=== PATIENT | male | born 1965 | race Caucasian/White ===

== ENCOUNTER 2017-06-22 13:15 | Observation (INO) ==
[2017-06-22 14:20] LABS: Basophils # 0.1 K/mcL (0.0-0.2); Basophils % 0.6 %; Eosinophils # 0.1 K/mcL (0.0-0.6); Eosinophils % 1.2 %; Hematocrit 47.5 % (37.5-50.1); Hemoglobin 16.4 g/dL (12.9-16.9); Immature Granulocytes % 0.2 % (0-4); Lymphocytes % 22.5 %; Mean Corpuscular HGB Conc 34.5 g/dL (31.6-35.5); Mean Corpuscular Hemoglobin 29.5 pg (28.0-33.3); Mean Corpuscular Volume 85.4 fL (83.0-100.0); Monocytes # 0.7 K/mcL (0.0-1.3); Monocytes % 7.5 %; Neutrophils # 6.2 K/mcL (1.6-8.9); Platelet Count 236 K/mcL (140-400); Red Blood Count 5.56 M/mcL (4.19-5.50); Red Cell Distribution Width 13.3 % (11.5-14.5)
[2017-06-22 14:25] LABS: Prothrombin Time 11.2 Seconds (9.4-12.1)
[2017-06-22 14:30] LABS: BUN/Creatinine Ratio 17 (6-26); Blood Urea Nitrogen 15 mg/dL (8-26); Calcium 9.5 mg/dL (8.6-10.8); Carbon Dioxide 28 mEq/L (19-29); Chloride 101 mEq/L (98-109); Glucose 91 mg/dL (70-99); Magnesium 1.9 mg/dL (1.6-2.6); Osmolality,Calculated 290 (280-300); Phosphorous 2.9 mg/dL (2.3-4.7); Potassium 3.3 mEq/L (3.5-4.5); Sodium 140 mEq/L (136-145); eGFR For African Americans > 60 (> 60); eGFR For Non-African Americans > 60 (> 60)
[2017-06-22] MEDS ORDERED: Aspirin 81 MG TAB.CHEW PO ONE (14:31)
[2017-06-22] MEDS ORDERED: Nitroglycerin 0.4 MG TAB.SUBL SL PRN (14:32)
--- NOTE | 2017-06-22 14:35 | Emergency Department Note ---
Disposition Clinical Impression: Unstable angina Hypertension Qualifiers: Hypertension type: unspecified Qualified Code(s): I10 - Essential (primary) hypertension Disposition: Admitted As Inpatient Condition: Fair Referrals: Dirk Campos Jr, MD [Primary Care Provider] - Forms: ED Satisfaction Letter Time of Disposition: 15:20 Chest Pain HPI - General Chief Complaint: ED Chest Pain Stated Complaint: CP Time Seen by Provider: 06/22/17 13:55 Source: patient Mode of arrival: ambulatory Limitations: no limitations Vital Signs Reviewed: Yes Nursing Notes Reviewed: Yes - History of Present Illness HPI Narrative: 52-year-old male with a history of hypertension presents for evaluation of 9 hours of retrosternal nonexertional chest pressure without radiation. Patient states it feels like somebody is sitting on his chest. Patient denies any radiation of symptoms. Denies a history of prior. Denies history of heart attacks in the past. Did have a remote stress test performed. Denies any dyspnea. Notes baseline diaphoresis. No nausea or vomiting. No abdominal pain. No fevers or cough. Patient took 1 baby aspirin prior to arrival. Severity scale (1-10): 6 - Related Data Home Medications Medication Instructions Recorded Confirmed Aspirin Enteric Coated [Aspirin EC] 81 mg PO DAILY 06/22/17 06/22/17 Metoprolol Succinate 100 mg PO DAILY 06/22/17 06/22/17 Multivitamin [Multi-Day Vitamins] 1 each PO DAILY 06/22/17 06/22/17 Triamterene/HCTZ 37.5/25mg 1 each PO DAILY 06/22/17 06/22/17 [Dyazide] Allergies Allergy/AdvReac Type Severity Reaction Status Date / Time Penicillins [PCN] Allergy Rash Verified 12/26/16 11:53 All systems ED: reviewed and negative except as stated. Constitutional: Reports: as per HPI. Denies: fever Eyes: Reports: as per HPI ENT ED: Reports: as per HPI Cardiovascular: Reports: as per HPI, chest pain Respiratory: Reports: as per HPI. Denies: cough, dyspnea Gastrointestinal: Reports: as per HPI. Denies: abdominal pain, nausea, vomiting Genitourinary: Reports: as per HPI Musculoskeletal: Reports: as per HPI. Denies: back pain Integumentary: Reports: as per HPI Neurological: Reports: as per HPI, headache Psychiatric: Reports: as per HPI Endocrine: Reports: as per HPI Chest Pain PMH - Past Medical History Medical history: Reports: hypertension Psychiatric history: Reports: no psych history - Social History Smoking Status: Former smoker Alcohol use: Reports: none Drug use: Reports: none Physical Exam - General Limitations: no limitations General appearance: alert, in no apparent distress - Head Head exam: atraumatic, normocephalic, normal inspection - Eye Eye exam: Present: normal appearance, PERRL, EOMI - ENT ENT exam: normal exam, mucous membranes moist - Neck Neck exam: Present: normal inspection - Chest Chest inspection: Present: normal inspection, symmetric chest wall rise - Respiratory Respiratory exam: Present: normal lung sounds bilaterally. Absent: respiratory distress - Cardiovascular Cardiovascular exam: Present: regular rate, normal rhythm. Absent: systolic murmur - Abdominal Exam Abdominal exam: Present: soft, Non-Tender - Extremities Exam Extremities exam: Present: normal inspection. Absent: pedal edema - Expanded Lower Extremity Exam Neurovascular/Tendon exam: Present: normal capillary refill - Back Exam Back exam: Present: normal inspection, full ROM. Absent: tenderness - Neurological Exam Neurological exam: Present: alert, oriented X3 - Skin Skin exam: Present: warm, dry, intact, normal color Course Course Narrative: Patient seen and examined. Patient's in no acute distress. Patients receiving cardiopulmonary evaluation including troponin, EKG, chest x-ray. Patient also receiving full dose aspirin and nitroglycerin. - Reevaluation(s) Reevaluation #1: Patient seen and examined. Reports pain has improved following the nitroglycen. Time: 15:20 Vital Signs O2 Sat by Pulse Oximetry 98 06/22/17 14:26 Temperature 98.5 F 06/22/17 14:30 Pulse Rate 76 06/22/17 15:29 Respiratory Rate 18 06/22/17 15:29 Blood Pressure 158/98 06/22/17 15:29 O2 Sat by Pulse Oximetry 98 06/22/17 15:29 Oxygen Delivery Oxygen Delivery Room Air Chest Pain - [facility] Narrative Medical decision making narrative: 52-year-old male percent survivorship chest pain. Patient does have risk factors including hypertension, tobacco use is well as obesity. Patient's heart scores 4. Patient had relief with nitroglycerin. Patient's symptoms are consistent with unstable angina. Patient would likely need further evaluation with troponins as well as possible stress test. Patient is agreeable with plan of care. This does not appear to be a PE as the patient is not have a pleuritic component. Patient's symptoms are more consistent with ACS. - Lab Data Lab results reviewed: Yes I reviewed the patient's lab results. Result diagrams: 06/22/17 14:06 06/22/17 14:06 Lab Results 06/22/17 06/22/17 06/22/17 Range/Units 14:06 14:06 14:06 WBC 9.1 (4.3-11.1) K/mcL RBC 5.56 H (4.19-5.50) M/mcL Hgb 16.4 (12.9-16.9) g/dL Hct 47.5 (37.5-50.1) % MCV 85.4 (83.0-100.0) fL MCH 29.5 (28.0-33.3) pg MCHC 34.5 (31.6-35.5) g/dL RDW 13.3 (11.5-14.5) % Plt Count 236 (140-400) K/mcL MPV 10.0 (9.4-12.4) fL Immature Gran % 0.2 (0-4) % Seg Neutrophils % 68.0 % Lymphocytes % 22.5 % Monocytes % 7.5 % Eosinophils % 1.2 % Basophils % 0.6 % Neutrophils # 6.2 (1.6-8.9) K/mcL Lymphocytes # 2.0 (0.6-4.6) K/mcL Monocytes # 0.7 (0.0-1.3) K/mcL Eosinophils # 0.1 (0.0-0.6) K/mcL Basophils # 0.1 (0.0-0.2) K/mcL PT 11.2 (9.4-12.1) Seconds INR 1.0 Sodium (136-145) mEq/L Potassium (3.5-4.5) mEq/L Chloride (98-109) mEq/L Carbon Dioxide (19-29) mEq/L BUN (8-26) mg/dL Creatinine (0.72-1.25) mg/dL Est GFR ( Amer) (> 60) Est GFR (Non-Af Amer) (> 60) BUN/Creatinine Ratio (6-26) Glucose (70-99) mg/dL Calculated Osmolality (280-300) Calcium (8.6-10.8) mg/dL Phosphorus (2.3-4.7) mg/dL Magnesium (1.6-2.6) mg/dL Troponin I (0-0.03) ng/mL B-Natriuretic Peptide 54 (0-100) pg/mL 06/22/17 06/22/17 Range/Units 14:06 14:06 WBC (4.3-11.1) K/mcL RBC (4.19-5.50) M/mcL Hgb (12.9-16.9) g/dL Hct (37.5-50.1) % MCV (83.0-100.0) fL MCH (28.0-33.3) pg MCHC (31.6-35.5) g/dL RDW (11.5-14.5) % Plt Count (140-400) K/mcL MPV (9.4-12.4) fL Immature Gran % (0-4) % Seg Neutrophils % % Lymphocytes % % Monocytes % % Eosinophils % % Basophils % % Neutrophils # (1.6-8.9) K/mcL Lymphocytes # (0.6-4.6) K/mcL Monocytes # (0.0-1.3) K/mcL Eosinophils # (0.0-0.6) K/mcL Basophils # (0.0-0.2) K/mcL PT (9.4-12.1) Seconds INR Sodium 140 (136-145) mEq/L Potassium 3.3 L (3.5-4.5) mEq/L Chloride 101 (98-109) mEq/L Carbon Dioxide 28 (19-29) mEq/L BUN 15 (8-26) mg/dL Creatinine 0.87 (0.72-1.25) mg/dL Est GFR ( Amer) > 60 (> 60) Est GFR (Non-Af Amer) > 60 (> 60) BUN/Creatinine Ratio 17 (6-26) Glucose 91 (70-99) mg/dL Calculated Osmolality 290 (280-300) Calcium 9.5 (8.6-10.8) mg/dL Phosphorus 2.9 (2.3-4.7) mg/dL Magnesium 1.9 (1.6-2.6) mg/dL Troponin I 0.00 (0-0.03) ng/mL B-Natriuretic Peptide (0-100) pg/mL - Radiology Data Radiology results reviewed: Yes I reviewed the patient's radiology results. - EKG Data EKG attestation: Yes I reviewed and interpreted this EKG. EKG shows normal: sinus rhythm Rate: normal Rhythm: NSR [place]/QRS: left axis deviation Voltage: c/w LVH P waves: LAE, other (P-wave inversions in V1,V2) ST segment depression in: aVF Interpretation: no acute changes, nonspecific ST-T wave changes Heart Score - Score History: Highly Suspicious EKG: Normal Age: 45-65 Risk Factors: 1-2 risk factors Troponin: Less than normal limit HEART Score Total: 4 S.B.ANilda - S.Adeline Situation: Demographics Background: Presenting Complaint Assessment: Vital Signs, Course and respsone to treatment, Patient/Family Expectation Recommendation: Barrier(s) to disposition, Recommendation based on pending studies, treatments, or consults S.BJeffANilda Report Given to: Dr. Barbie ZamarripaBJeffANilda Repor Time: 15:20 Attestation Statement - Attestation Attestation: I examined this patient and my medical decision-making was reviewed with the Resident Physician. I agree with the documented findings, disposition and treatment plan as described except to the extent set forth below. Patient to the ED with a chief complaint of chest pain. Substernal chest pressure. Still present on arrival here. No cardiac history. States had similar symptoms one time when he was "out of rhythm." No nausea vomiting. No diaphoresis. Pain is nonexertional. Exam shows him in bed in no distress. Heart regular lungs clear. Plan. Cardiac workup.
[2017-06-22] MEDS ORDERED: Naloxone 0.4 MG/ML INJ IVP PRN ×2 (19:18→22:02)
--- NOTE | 2017-06-22 19:33 | Internal Med History&Physical ---
Date of Encounter: 06/22/17 Time of Encounter: 19:27 Assessment and Plan (1) Chest pain Current visit: Yes Status: Acute Presents for chest pain, dyspnea, HTN and new BLE swelling r/o ACS. Workup thus far reveals unremarkable CBC and BMP, trop 0.00, stable CXR. Being admitted to r/o ACS d/t risk factors of HTN, Obesity, and new BLE swelling. Continuous telemetry Trend trops Lipid panel in AM as the patient does not think they have ever been checked exercise stress in am Echocardiogram Continue ASA at home dose 81mg Continue dyazide 37.5/25 Qualifiers: Ischemic chest pain type: unstable angina pectoris Qualified Code(s): I20.0 - Unstable angina (2) Hypertension Current visit: Yes Status: Acute Hypertension accompanied by CP and dyspena upon arrival to ED. BP has been better controlled since admission to hospital. Continue dyazide 37.5/25 Continue BB at home dose Qualifiers: Hypertension type: unspecified Qualified Code(s): I10 - Essential (primary ) hypertension (3) Diabetes Current visit: Yes Status: Suspected New polyuria, polyphagia, and polydipsia. Concern for DMII hgb a1c in am. Qualifiers: Diabetes mellitus type: type 2 Diabetes mellitus complication status: without complication Diabetes mellitus long term care administrator insulin use: without long term care administrator use Qualified Code(s): E11.9 - Type 2 diabetes mellitus without complications (4) Hypokalemia Current visit: Yes Status: Acute potassium of 3.3 replace with 40meq PO potassium. CMP in am. (5) DVT prophylaxis Current visit: Yes Status: Acute At risk for DVT d/t prolonged immobility and hospital stay. Start lovenox 40mg sc Internal Medicine - H&P: HPI Chief complaint: CHEST PAIN Admitted From: Home Plans for Post Hospital Care: Home History of present illness: Mr. Baca is a 52 year old male with a past medical history of hypertension, and sleep apnea who presents to [facility] today with 9 hours of retrosternal chest pain rated 6/10 at its worst, without radiation and dyspnea. No longer feeling CP but complains of chest pressure "I feel like a weight on my chest". Additionally admits to BLE swelling, polyuria, polydipsia , and polyphagia. Workup in the ED included CBC, metabolic panel and troponin which are all unremarkable at this time. Chest x-ray reveals no acute pulmonary process. Being admitted to [facility] for further monitoring and evaluation Past Med Surg Social Fam HX - Past Medical History Medical history: hypertension Psychiatric history: no psych history - Social History Smoking Status: Former smoker Smokeless Tobacco Status: No Alcohol use: occasionally Drug use: none - Family History Father Living Status: Cause of : cancer Hx Family Cancer: Yes Internal Medicine - H&P: Meds Aspirin Enteric Coated [Aspirin EC] 81 mg PO DAILY 06/22/17 [History] Metoprolol Succinate 100 mg PO DAILY 06/22/17 [History] Multivitamin [Multi-Day Vitamins] 1 each PO DAILY 06/22/17 [History] Triamterene/HCTZ 37.5/25mg [Dyazide] 1 each PO DAILY 06/22/17 [History] 3 Allergy/AdvReac Type Severity Reaction Status Date / Time Penicillins [PCN] Allergy Rash Verified 12/26/16 11:53 All Systems PM: A 10-system review of systems was performed and is negative for pertinent findings except as documented above in the HPI. - Constitutional Constitutional: no chills, no fever(s), no night sweats - EENT Eyes: no change in vision, no discharge, no pain, no photophobia Ears: no ear discharge, no ear pain, no tinnitus Nose, mouth and throat: no dysphagia, no nasal discharge, no neck pain, no sore throat - Cardiovascular Cardiovascular ROS IM: as per HPI, chest pain, dyspnea, palpitations, no diaphoresis, no irregular heart rhythm, no lightheadedness, no syncope - Respiratory Respiratory: no cough, no dyspnea on exertion, no wheezing, no excessive phlegm production - Gastrointestinal Gastrointestinal: no abdominal pain, no diarrhea, no hematemesis, no hematochezia, no melena, no nausea, no vomiting - Musculoskeletal Musculoskeletal ROS IM: no numbness, no tingling - Integumentary Integumentary IM: no rash, no unusual bruising - Neurological Neurological ROS: no confusion, no convulsions, no focal weakness, no numbness, no tingling, no tremor(s) - Endocrine Endocrine IM: excessive sweating, polydipsia, polyphagia, polyuria - Hematologic/Lymphatic Hematologic/Lymphatic: no easy bruising - Constitutional Vitals: Temp Pulse Resp BP Pulse Ox 99.0 F 76 17 134/82 96 06/22/17 19:25 06/22/17 19:25 06/22/17 19:25 06/22/17 19:25 06/22/17 19:25 General appearance: Present: cooperative, A&O X 3, no acute distress, answers questions appropriately - Head Head exam: Present: atraumatic, normocephalic - Eye Eye exam: Present: EOMI, PERRL, conjuntiva pink, sclera anicteric Pupils: Present: PERRL - Respiratory Respiratory exam: Present: CTAB. Absent: accessory muscle use, rales, rhonchi, wheezes - Cardiovascular Cardiovascular exam: Present: RRR, +S1, +S2. Absent: diastolic murmur, gallop, rubs, systolic murmur - GI/Abdominal GI/Abdominal exam: Present: firm, normal bowel sounds, soft, no peritoneal signs. Absent: distended, guarding, tenderness - Extremities Exam Extremities exam: Present: normal capillary refill, warm, radial pulses palpable and symmetrical. Absent: calf tenderness, cyanotic, pedal edema Additional comments: Lateral lower extremity is mildly swollen without pitting edema - Neurological Exam Neurological exam: Present: CN II-XII intact, oriented X3, no focal deficits. Absent: pronater drift, facial droop, speech deficit - Skin Skin exam: Present: dry, intact Internal Med - H&P Results - Labs CBC & Chem 7: 06/22/17 14:06 06/22/17 14:06 - Diagnostic Studies Chest x-ray Additional comments: No acute pulmonary process
[2017-06-22] MEDS ORDERED: *HR* Heparin 5,000 UNIT/ML VIAL IVP ONE (22:27)
[2017-06-22] MEDS ORDERED: *HR* Heparin 5,000 UNIT/ML VIAL IVP PRN ×2 (22:27)
--- NOTE | 2017-06-22 22:29 | Event Note ---
Date of Encounter: 06/22/17 Time of Encounter: 22:28 Patient seen and examined with nurse practitioner. Unstable angina. EKG shows .[address] depression in precordial leads. initial troponin normal. Will start the patient on full dose anticoagulation with heparin. Cardiology consultation.
[2017-06-22] MEDS ORDERED: Heparin 25,000 UNIT/500 ML D5W 25,000 UNIT/500 ML MLS IVC SCH (22:30)
[2017-06-22 22:52] LABS: Hematocrit 43.6 % (37.5-50.1); Hemoglobin 14.9 g/dL (12.9-16.9); Immature Platelets 3.6 % (1.1-6.1); Mean Corpuscular HGB Conc 34.2 g/dL (31.6-35.5); Mean Corpuscular Hemoglobin 29.3 pg (28.0-33.3); Mean Corpuscular Volume 85.7 fL (83.0-100.0); Mean Platelet Volume 10.1 fL (9.4-12.4); Red Blood Count 5.09 M/mcL (4.19-5.50); Red Cell Distribution Width 13.3 % (11.5-14.5)
[2017-06-22 22:56] LABS: INR 1.1; Prothrombin Time 12.4 Seconds (9.4-12.1)
[2017-06-23 04:40] LABS: Basophils # 0.1 K/mcL (0.0-0.2); Basophils % 0.6 %; Eosinophils # 0.1 K/mcL (0.0-0.6); Eosinophils % 1.5 %; Hematocrit 43.8 % (37.5-50.1); Hemoglobin 15.4 g/dL (12.9-16.9); Immature Granulocytes % 0.2 % (0-4); Lymphocytes # 2.5 K/mcL (0.6-4.6); Lymphocytes % 31.5 %; Mean Corpuscular HGB Conc 35.2 g/dL (31.6-35.5); Mean Corpuscular Hemoglobin 30.3 pg (28.0-33.3); Mean Corpuscular Volume 86.2 fL (83.0-100.0); Mean Platelet Volume 10.1 fL (9.4-12.4); Monocytes # 0.6 K/mcL (0.0-1.3); Monocytes % 7.5 %; Neutrophils # 4.7 K/mcL (1.6-8.9); Platelet Count 199 K/mcL (140-400); Red Blood Count 5.08 M/mcL (4.19-5.50); Red Cell Distribution Width 13.5 % (11.5-14.5); Segmented Neutrophils % 58.7 %
[2017-06-23 04:46] LABS: Hemoglobin A1C 5.1 %
[2017-06-23 04:54] LABS: Alanine Aminotransferase 59 Units/L (0-55); Albumin 3.3 g/dL (3.5-5.0); Albumin/Globulin Ratio 0.9 (1.1-2.2); Alkaline Phosphatase 61 Units/L (38-126); Aspartate Amino Transferase 35 Units/L (5-34); BUN/Creatinine Ratio 17 (6-26); Bilirubin,Total 0.8 mg/dL (0.2-1.2); Blood Urea Nitrogen 14 mg/dL (8-26); Calcium 8.6 mg/dL (8.6-10.8); Carbon Dioxide 28 mEq/L (19-29); Chloride 105 mEq/L (98-109); Cholesterol 141 mg/dL (< 200); Globulin 3.5 g/dL (2.4-3.5); Glucose 95 mg/dL (70-99); HDL Cholesterol 28 mg/dL (40-59); LDL Cholesterol,Calculated 85 mg/dL (0-99); Osmolality,Calculated 294 (280-300); Potassium 3.2 mEq/L (3.5-4.5); Sodium 142 mEq/L (136-145); Total Protein 6.8 g/dL (6.0-8.3); Triglycerides 141 mg/dL (< 150); eGFR For African Americans > 60 (> 60); eGFR For Non-African Americans > 60 (> 60)
[2017-06-23] MEDS ORDERED: *HR* Enoxaparin 40 MG/0.4 ML SYRINGE SQ SCH (06:00)
[2017-06-23] MEDS ORDERED: Regadenoson 0.4 MG/5 ML SYRINGE IVP ONE (08:36)
[2017-06-23] MEDS: Aspirin Enteric Coated 81 MG Tablet PO SCH (10:38)
[2017-06-23] MEDS: Multivit/Ca/Min/Fe/FA 1 TAB TABLET PO SCH (10:38)
[2017-06-23] MEDS: Metoprolol XL (24 HR) Succ 50 MG TAB.ER.24H PO SCH (10:38)
--- NOTE | 2017-06-23 14:17 | Electrocardiograph Report ---
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
--- NOTE | 2017-06-23 18:47 | Discharge Summary ---
Date of Encounter: 06/23/17 Time of Encounter: 08:40 - Discharge Medications Home Medications: Aspirin Enteric Coated [Aspirin EC] 81 mg PO DAILY 06/22/17 [History] Metoprolol Succinate 100 mg PO DAILY 06/22/17 [History] Multivitamin [Multi-Day Vitamins] 1 each PO DAILY 06/22/17 [History] Triamterene/HCTZ 37.5/25mg [Dyazide] 1 each PO DAILY 06/22/17 [History] Allergies/Adverse Reactions: 3 Allergy/AdvReac Type Severity Reaction Status Date / Time Penicillins [PCN] Allergy Rash Verified 12/26/16 11:53 Procedures/tests Complete & Pending: Procedures Performed prior 72 hours Category Date Time Status NM colten perf SPECT multi [NM] Routine Exams 06/23/17 07:53 Taken EV echocardiogram Routine Y 06/23/17 19:24 Completed SP pharm nuclear stress Routine Y 06/23/17 07:53 Completed Date of admission: 06/22/17 15:37 Primary care physician: Dirk Campos Jr, MD - Patient Status Condition: Fair - Discharge Instructions Follow Up With: Dirk Campos Jr, MD [Primary Care Provider] - Hospital course: Mr. Baca is a 52 year old male - Time Spent with Patient Total time spent providing and/or coordinating discharge services: - Constitutional Vitals: Temp Pulse Resp BP Pulse Ox 99.4 F 75 18 136/82 96 06/23/17 16:05 06/23/17 16:05 06/23/17 16:05 06/23/17 16:05 06/23/17 16:05 General appearance: Present: cooperative, A&O X 3, no acute distress, answers questions appropriately
--- NOTE | 2017-06-23 18:49 | Internal Med Progress Note ---
Date of Encounter: 06/23/17 Time of Encounter: 08:40 - Assessment and plan (1) Chest pain Current Visit: Yes Status: Acute Assessment and plan: Patient reported with midsternal chest pain rated 6/10 at its worst without radiation. This morning he rated it 2/10 and it was reproducible with deep inspiration and palpation. He reported in the emergency department the pain was relieved with nitroglycerin and aspirin. Patient is having to do a stress test to be completed tomorrow. Troponin was negative 3, lipid panel is within normal limits, A1c was 5.1. Echo showed Normal LV systolic function, LVEF 60-65%. Mild concentric left ventricular hypertrophy. Mild left ventricular diastolic dysfunction. Normal right ventricular size and function. It is probably bicuspid with fusion of the left and right coronary cusps. Mild aortic stenosis. Mildly dilated ascending aorta measuring 4.2 cm in diameter. Continue telemetry Stress test results tomorrow Consider cardiology consult pending results of stress Continue aspirin and beta joyce Nitroglycerin as needed for chest pain. Nothing by mouth after midnight Qualifiers: Ischemic chest pain type: unstable angina pectoris Qualified Code(s): I20.0 - Unstable angina (2) Hypertension Current Visit: Yes Status: Acute Assessment and plan: Well-controlled. Continue home medications. Qualifiers: Hypertension type: unspecified Qualified Code(s): I10 - Essential (primary ) hypertension (3) Hypokalemia Current Visit: Yes Status: Acute Assessment and plan: 3.2 today, additional supplementation given. Continue to monitor. (4) DVT prophylaxis Current Visit: Yes Status: Acute Assessment and plan: Lovenox subcutaneous, patient ambulatory in room. - Time Spent With Patient less than 15 minutes - Subjective Interval history: The patient was seen and assessed at 8:40 AM. Reports moderate midsternal pressure, 6/10, describes it as a heaviness states that it was relieved by nitroglycerin and aspirin in the emergency department. States it is still there and rates it as 2/10. He denies radiation diaphoresis, nausea, vomiting, or shortness of breath. The pain is worse with deep inspiration and palpation. He is a 2 day stress test, will complete tomorrow. - Constitutional Vitals: Temp Pulse Resp BP Pulse Ox 99.4 F 75 18 136/82 96 06/23/17 16:05 06/23/17 16:05 06/23/17 16:05 06/23/17 16:05 06/23/17 16:05 General appearance: Present: cooperative, A&O X 3, no acute distress, obese, answers questions appropriately - Head Head exam: Present: atraumatic, normal inspection, normocephalic - Eye Eye exam: Present: conjuntiva pink, sclera anicteric - Neck Neck exam general surgery: Present: normal inspection, supple, trachea midline. Absent: lymphadenopathy, tenderness - Expanded Neck Exam Neck exam: Absent: carotid bruit - Respiratory Respiratory exam: Present: CTAB. Absent: accessory muscle use, rales, rhonchi, wheezes - Cardiovascular Cardiovascular exam: Present: RRR, +S1, +S2. Absent: diastolic murmur, gallop, rubs, systolic murmur - GI/Abdominal GI/Abdominal exam: Present: normal bowel sounds, soft, tenderness, no peritoneal signs. Absent: distended, hepatomegaly - Extremities Exam Extremities exam: Present: normal inspection, warm, radial pulses palpable and symmetrical. Absent: calf tenderness, cyanotic, joint swelling, pedal edema, tenderness - Neurological Exam Neurological exam: Present: oriented X3. Absent: facial droop, speech deficit - Skin Skin exam: Present: dry, intact, normal color, warm. Absent: rash Internal Medicine: Result - Labs CBC & Chem 7: 06/23/17 04:28 06/23/17 04:28 Labs: Short CBC 06/22/17 06/23/17 Range/Units 22:43 04:28 WBC 8.7 8.0 (4.3-11.1) K/mcL Hgb 14.9 D 15.4 (12.9-16.9) g/dL Hct 43.6 43.8 (37.5-50.1) % Plt Count 223 199 (140-400) K/mcL Neutrophils # 4.7 (1.6-8.9) K/mcL BMP 06/23/17 04:28 Sodium 142 Potassium 3.2 L Chloride 105 Carbon Dioxide 28 BUN 14 Creatinine 0.81 Glucose 95 Calcium 8.6 Cardiac Enzymes 06/22/17 06/23/17 Range/Units 20:17 01:35 Troponin I 0.00 0.00 (0-0.03) ng/mL Liver Function 06/23/17 Range/Units 04:28 Total Bilirubin 0.8 (0.2-1.2) mg/dL AST 35 H (5-34) Units/L ALT 59 H (0-55) Units/L Alkaline Phosphatase 61 (38-126) Units/L Albumin 3.3 L (3.5-5.0) g/dL - ABG Interpretation ABG results: PT/INR, D-dimer PT 12.4 Seconds (9.4-12.1) H 06/22/17 22:43 Consult Discharge Plan - Plan Referrals: Dirk Campos Jr, MD [Primary Care Provider] -
[2017-06-24 05:28] LABS: Basophils % 0.5 %; Eosinophils # 0.1 K/mcL (0.0-0.6); Eosinophils % 1.6 %; Hematocrit 45.7 % (37.5-50.1); Hemoglobin 15.8 g/dL (12.9-16.9); Immature Granulocytes % 0.2 % (0-4); Lymphocytes # 1.9 K/mcL (0.6-4.6); Lymphocytes % 22.1 %; Mean Corpuscular HGB Conc 34.6 g/dL (31.6-35.5); Mean Corpuscular Hemoglobin 29.9 pg (28.0-33.3); Mean Corpuscular Volume 86.4 fL (83.0-100.0); Monocytes # 0.7 K/mcL (0.0-1.3); Monocytes % 8.4 %; Neutrophils # 5.8 K/mcL (1.6-8.9); Platelet Count 217 K/mcL (140-400); Red Blood Count 5.29 M/mcL (4.19-5.50); Red Cell Distribution Width 13.6 % (11.5-14.5); Segmented Neutrophils % 67.2 %
[2017-06-24] MEDS: Aspirin Enteric Coated 81 MG Tablet PO SCH (08:19)
[2017-06-24] MEDS: Multivit/Ca/Min/Fe/FA 1 TAB TABLET PO SCH (08:19)
[2017-06-24] MEDS: Metoprolol XL (24 HR) Succ 50 MG TAB.ER.24H PO SCH (08:24)
--- NOTE | 2017-06-24 08:45 | Nuclear Medicine Stress Report ---
Regadenoson Nuclear 2 day Name: Randal Baca Date of Study: 06/23/2017 Date: 1965 Ht: 69.0 in Medical Record#: [id number] Age: 52 Wt: 280.0 lb Gender: Male Order #: [id number] [facility] Supervising Provider: Art Staples CNP Reading Physician: Porfirio Umaña DO, FACC, FASNC Ordering Physician: Nanette Chance CNP Primary Care Physician: Dirk Campos MD Stress Technologist: Barber Ashby CRT Pharmacy Stock Clerk: Rubens Mcmanus Indications: Chest Pain Impression: Pharmacologic stress ECG is non diagnostic for ischemia due to baseline ST and T changes. Gated EF = 68%. Perfusion imaging was negative for ischemia or infarct. History: Hypertension Stress Test Summary: Stress Test Type: Pharmacologic Regadenoson 0.4mg/5ml given IV Baseline Information: Initial Heart Rate: 84 Blood Pressure: 160/100 Stress Information: Test Terminated Due to (primary): As per protocol Maximum Blood Pressure: 162/90 Maximum Heart Rate: 117 Percent Maximum Heart Rate Achieved: 70 Double Product: [id number] METS Reached: 1 Symptoms: tightness Nuclear Summary: SPECT myocardial perfusion imaging using Tc99m Sestamibi given intravenously was performed at rest and following cardiac stress testing. The resting images were obtained following initial dose of 33.1 mCi. Following stress an additional dose of 33.6 mCi was given at peak exercise or 30 seconds post regadenoson infusion. Medication Given: Time Medication Dose Units Route Findings: Stress Note * Resting ECG demonstrated normal sinus rhythm, ST-T changes. * No baseline arrhythmias were noted. * Pharmacologic stress ECG is non diagnostic for ischemia due to baseline ST and T changes. * No arrhythmias were noted during stress. * Patient had no chest pain during stress. * Normal hemodynamic responses to pharmacologic stress. Study Quality * Study quality is average. Gated EF % * Gated EF = 68%. Left Ventricle * The left ventricle is dilated. LVEDV = 148 mL. NORMALS * Normal wall motion. * Normal Segmental Perfusion in rest. * Normal segmental perfusion in stress. TID * No evidence of transient ischemic dilatation. TID ratio = 0.92. Lung Uptake * There is no evidence of increase lung uptake. Updated by Porfirio Umaña DO, FACC, FASE, FASCRISTINO on 06/24/2017 8:38:47 AM electronically signed on 06/24/2017 8:39:35 AM with status of Final
[2017-06-24 14:33] VITALS: BP 153/82
--- NOTE | 2017-06-24 15:30 | Discharge Summary ---
Date of Encounter: 06/24/17 Time of Encounter: 13:55 - Discharge Diagnosis (1) Chest pain Priority: Primary Status: Acute Comments: Pt denies chest pain currently. Pain is reproducible with palpation to right and left anterior chest frazier. Pt denies it being reproducible with movement or deep inspiration. Stress test negative for ischemia or infarct, gated EF 68%. Echocardiogram with normal LV systolic function EF 6065%, mild concentric LV hypertrophy, mild LVEDD, most likely bicuspid aortic valve, mild ALS, no AR. Descending aorta 4.2 cm in diameter, is not palpable, there is no bruit auscultated, patient can follow up with primary care for further imaging. 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 He denies change in routine, however all testing has been negative and pain is reproducible with palpation. I recommended patient take ibuprofen and apply heat, rest and increase fluids. Qualifiers: Ischemic chest pain type: unstable angina pectoris Qualified Code(s): I20.0 - Unstable angina (2) Hypertension Priority: Secondary Status: Acute Comments: Well-controlled in inpatient setting. Continue home medications. Qualifiers: Hypertension type: unspecified Qualified Code(s): I10 - Essential (primary ) hypertension (3) Hypokalemia Priority: Secondary Status: Resolved (4) DVT prophylaxis Priority: Secondary Status: Acute Comments: Patient has been ambulatory in his room, Lovenox subcutaneous. - Discharge Medications Prescriptions: Fluticasone Propionate Nasal [Flonase] 50 mcg NS DAILY #1 bottle Loratadine [Claritin] 10 mg PO DAILY #30 tablet Home Medications: Aspirin Enteric Coated [Aspirin EC] 81 mg PO DAILY 06/22/17 [History] Metoprolol Succinate 100 mg PO DAILY 06/22/17 [History] Multivitamin [Multi-Day Vitamins] 1 each PO DAILY 06/22/17 [History] Triamterene/HCTZ 37.5/25mg [Dyazide] 1 each PO DAILY 06/22/17 [History] Fluticasone Propionate Nasal [Flonase] 50 mcg NS DAILY #1 bottle 06/24/17 [Rx] Loratadine [Claritin] 10 mg PO DAILY #30 tablet 06/24/17 [Rx] Allergies/Adverse Reactions: 3 Allergy/AdvReac Type Severity Reaction Status Date / Time Penicillins [PCN] Allergy Rash Verified 12/26/16 11:53 Procedures/tests Complete & Pending: Procedures Performed prior 72 hours Category Date Time Status NM colten perf SPECT multi [NM] Routine Exams 06/23/17 07:53 Taken ECG 12 lead ECG [ECG] Routine Y 06/23/17 16:21 Completed EV echocardiogram Routine Y 06/23/17 19:24 Completed SP pharm nuclear stress Routine Y 06/23/17 07:53 Completed Date of admission: 06/22/17 15:37 Primary care physician: Dirk Campos Jr, MD Discharging clinician: Carol Pace Anticipated date of discharge: 06/24/17 - Patient Status Disposition: Home, Self-Care Condition: Good Functional capacity at discharge: independent ambulation Overall status at discharge: patient is back to baseline - Discharge Instructions Instructions: Chest Pain (DC), Hypokalemia (DC), Chronic Hypertension (DC) Follow Up With: Dirk Campos Jr, MD [Primary Care Provider] - 07/01/17 1:00 pm Additional Instructions: Follow-up with her primary care provider in the next 7-10 days for a follow-up visit. Resume your normal home medications. Start Claritin and Flonase in the morning. Return to the emergency department immediately if he began having chest pain again or for any other problems or concerns. Resume your normal activities as tolerated and return to her normal diet slowly. - Diet and Activity Activity: increase activity as tolerated Diet: advance to your usual diet Hospital course: Mr. Baca is a 52 year old male with prior history of hypertension who presented to the emergency department with 9 hours of retrosternal chest pain that he said was 6 out of 10 at its worst, no radiation of dyspnea. The chest pain resolved, he said he fell it goes away on his chest. Additionally he admits to bilateral lower extremity swelling, polyuria, polydipsia, polyphagia. Today patient denies chest pain except with deep palpation. It is reproducible with deep palpation. 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 Today he denies any shortness of breath, nausea, vomiting, diaphoresis, or chest heaviness. Echocardiogram showed preserved function in 6-65% with mild LV DD, mild aortic stenosis, no aortic regurgitation. Stress test today was negative for ischemia or infarct with a gaited EF of 68%. Troponins were negative 3. BNP is negative at 54. 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 He will need to follow up with primary care for continued evaluation. Physical exam is unremarkable. Patient states that since he has been lying down for the last 2 days, the bilateral ankle edema has resolved. His states that the edema occurs mostly after he has been working. Patient has denied any other symptoms of polydipsia, polyuria, polyphagia since he has been here. His A1c is 5.1. Patient does report frequent headaches that are relieved with Mountain Dew as well as frequent watering eyes, nasal congestion, and postnasal drip. Patient reports this is chronic has been going on for over a year. He has no leukocytosis, fever, tachycardia. I have started him on Claritin and Flonase. Also have ordered an outpatient CAT scan to assess the descending thoracic aortic aneurysm. Results will go to primary care. Patient is pain-free, labs within normal limits, patient verbalizes understanding of plan of care and denies questions. Vital signs are stable and within normal limits. Patient is ready for discharge. - Time Spent with Patient Total time spent providing and/or coordinating discharge services: Less than 30 minutes - Constitutional Vitals: Temp Pulse Resp BP Pulse Ox 98.0 F 78 14 153/82 96 06/24/17 14:32 06/24/17 14:32 06/24/17 14:32 06/24/17 14:32 06/24/17 14:32 General appearance: Present: cooperative, A&O X 3, pleasant, no acute distress, obese, answers questions appropriately - Head Head exam: Present: atraumatic, normal inspection, normocephalic - Eye Eye exam: Present: normal appearance, conjuntiva pink, sclera anicteric - Neck Neck exam general surgery: Present: normal inspection, supple, trachea midline. Absent: lymphadenopathy, tenderness - Respiratory Respiratory exam: Present: chest wall tenderness, CTAB. Absent: accessory muscle use, decreased breath sounds, rales, respiratory distress, rhonchi, wheezes - Cardiovascular Cardiovascular exam: Present: RRR, +S1, +S2. Absent: diastolic murmur, gallop, rubs, systolic murmur - GI/Abdominal GI/Abdominal exam: Present: distended, normal bowel sounds, soft, no peritoneal signs. Absent: hepatomegaly, tenderness - Extremities Exam Extremities exam: Present: normal capillary refill, normal inspection, warm, radial pulses palpable and symmetrical. Absent: calf tenderness, cyanotic, pedal edema, tenderness - Neurological Exam Neurological exam: Present: alert, oriented X3, no focal deficits. Absent: facial droop, speech deficit - Skin Skin exam: Present: dry, intact, normal color, warm. Absent: rash
--- NOTE | 2017-06-24 16:06 | Electrocardiograph Report ---
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
== END 2017-06-24 16:22 | disposition home or self-care (01) ==
LOC: 3BNU 13:15 → EMEROO 13:15 → 3BNU 15:52
PROVIDERS: ADMIT Nurse Practitioner; ATTEND Nurse Practitioner Family

== ENCOUNTER 2019-01-06 06:36 | Observation (INO) ==
[2019-01-06] MEDS ORDERED: Isovue-370 500 ML BOTTLE IVP ONE (07:11)
[2019-01-06] MEDS ORDERED: Aspirin Enteric Coated 81 MG Tablet PO STA (07:12)
--- NOTE | 2019-01-06 07:26 | Emergency Department Note ---
Disposition Clinical Impression: Chest pain, rule out acute myocardial infarction Disposition: Admitted As Inpatient Condition: Good Referrals: Dirk Campos Jr, MD [Primary Care Provider] - Forms: ED Satisfaction Letter Time of Disposition: 10:22 General Adult HPI - General Chief complaint: ED Chest Pain Stated complaint: "groin and CP" Time Seen by Provider: 01/06/19 06:41 Source: patient Mode of arrival: ambulatory Limitations: no limitations Nursing Notes Reviewed: Yes Vital Signs Reviewed: Yes - History of Present Illness HPI Narrative: Alert and oriented nontoxic-appearing 53-year-old male with a history of hypertension presents for evaluation of approximately one month's worth of intermittent substernal chest pressure. He rates his pain a 4 out of 10 on a 10 point scale. He denies any associated shortness of breath, fever, chills, nausea, vomiting, diaphoresis. He does complain of a intermittent nonproductive cough that he is developed over the past 2 weeks. He has a secondary complaint of approximately 2 weeks worth of left sided "groin" pain. This pain is worse with bearing down, straining, and coughing. He denies any testicular pain. He denies any urinary symptoms. He denies any abdominal pain, constipation, or diarrhea. Onset (ago): month(s) Location: chest, other (left groin) Pain Scale: 4 Quality: aching Consistency: intermittent Improves with: nothing Worsens with: nothing Associated symptoms: Reports: cough (nonproductive). Denies: diaphoresis, fever/chills, nausea/vomiting - Related Data Home Medications Medication Instructions Recorded Confirmed Aspirin Enteric Coated [Aspirin EC] 81 mg PO DAILY 06/22/17 10/28/17 Metoprolol Succinate 100 mg PO DAILY 06/22/17 10/28/17 Multivitamin [Multi-Day Vitamins] 1 each PO DAILY 06/22/17 10/28/17 Triamterene/HCTZ 37.5/25mg 1 each PO DAILY 06/22/17 10/28/17 [Dyazide] Lisinopril [Zestril] 40 mg PO BID 10/28/17 10/28/17 amLODIPine [Norvasc] 5 mg PO DAILY 10/28/17 10/28/17 Previous Rx's Medication Instructions Recorded Clindamycin [Cleocin] 150 mg PO Q6HR #7 capsule 10/28/17 Ibuprofen [Motrin] 600 mg PO Q8HR #20 tab 10/28/17 OxyCODONE Immed Rel [Roxicodone 5 5 mg PO Q4HR PRN #14 tablet 10/28/17 MG] Allergies Allergy/AdvReac Type Severity Reaction Status Date / Time acetaminophen [From Tylenol] Allergy Hives Verified 10/28/17 08:12 Penicillins [PCN] Allergy Rash Verified 10/28/17 08:12 All systems ED: reviewed and negative except as stated. Review of Systems: As Per HPI Constitutional: Denies: fever, chills, weakness, weight change Eyes: Denies: eye pain, eye discharge, vision change ENT ED: Denies: ear pain, throat pain, dental pain, hearing loss, epistaxis, congestion, dysphagia Cardiovascular: Reports: as per HPI, chest pain. Denies: palpitations, dyspnea on exertion, edema, syncope Respiratory: Reports: as per HPI, cough. Denies: dyspnea, wheezes, hemoptysis, stridor, sputum production Gastrointestinal: Reports: as per HPI, other (Left-sided groin pain). Denies: abdominal pain, nausea, vomiting, diarrhea, constipation, hematemesis, melena, hematochezia Genitourinary: Denies: urgency, dysuria, frequency, hematuria Musculoskeletal: Denies: back pain, neck pain, arthralgia, myalgia Integumentary: Denies: rash, abrasion, lesions Neurological: Denies: headache, weakness, numbness, paresthesias, confusion, abnormal gait, vertigo Psychiatric: Denies: anxiety, depression, suicidal thoughts, homicidal thoughts, auditory hallucinations, visual hallucinations Endocrine: Denies: fatigue Hematological/Lymphatic: Denies: easy bleeding, easy bruising Allergic/Immunologic: Denies: facial swelling, urticaria Past Medical History - Past Medical History Attestation: Yes The following information was validated with the patient. Source: patient, nursing notes reviewed Medical history: Reports: hypertension, other Psychiatric history: Reports: no psych history - Social History Smoking Status: Never smoker Smokeless Tobacco Status: No Alcohol use: Reports: occasionally Drug use: Reports: none Physical Exam - General Limitations: no limitations General appearance: alert, in no apparent distress - Head Head exam: atraumatic, normocephalic, normal inspection - Eye Eye exam: Present: normal appearance, PERRL, EOMI. Absent: nystagmus - ENT ENT exam: mucous membranes moist - Neck Neck exam: Present: normal inspection, full ROM, trachea midline - Chest Chest inspection: Present: normal inspection, symmetric chest wall rise - Respiratory Respiratory exam: Present: normal lung sounds bilaterally. Absent: respiratory distress, wheezes, stridor, accessory muscle use, prolonged expiratory phase - Cardiovascular Cardiovascular exam: Present: regular rate, normal rhythm, normal heart sounds - Abdominal Exam Abdominal exam: Present: soft, Non-Tender, normal bowel sounds. Absent: distention, guarding, rebound, rigidity, organomegaly, mass - Male exam: Absent: inguinal hernia (No appreciable palpable hernia), inguinal lymphadenopathy, testicular tenderness - Extremities Exam Extremities exam: Present: normal inspection, full ROM - Neurological Exam Neurological exam: Present: alert, oriented X3, normal gait - Psychiatric Psychiatric exam: Present: normal affect, normal mood - Skin Skin exam: Present: warm, dry, intact, normal color. Absent: rash Course Course Narrative: 1010: Heart score = 4. CT the abdomen and pelvis shows a small left-sided hernia. No evidence to suggest strangulated hernia. There is no palpable hernia. No overlying erythema or ecchymosis. And, patient states that that pain in his groin is only present with activities that increase intra-abdominal pressure such as straining to have a bowel movement or coughing. EKG is normal. Chest x-ray normal. CT of the chest shows no acute process. A nitroglycerin trial was ordered with sublingual nitroglycerin tablets. The patient was able to tolerate one tablet due to a sudden headache. He stated no relief in the chest pressure afterwards. He currently rates his pressure a 4 out of 10 on a 10 point scale. I discussed this patient's case with Dr. Massey. The patient will be admitted to the hospital service for chest pain rule out. The patient is agreeable with this plan. 1020: I have spoken with the admitting hospitalist, Dr. Martinez. He has accepted the patient for admission to the hospitalist care for further management and observation. Vital Signs Temperature 98.2 F 01/06/19 06:45 Pulse Rate 78 01/06/19 06:45 Respiratory Rate 18 01/06/19 06:45 Blood Pressure 181/92 01/06/19 06:45 O2 Sat by Pulse Oximetry 97 01/06/19 06:45 Temperature 98.2 F 01/06/19 06:45 Pulse Rate 78 01/06/19 06:45 Respiratory Rate 18 01/06/19 06:45 Blood Pressure 181/92 01/06/19 06:45 O2 Sat by Pulse Oximetry 97 01/06/19 06:45 Oxygen Delivery Oxygen Delivery Room Air Medical Decision Making - Medical Records Medical records reviewed: Yes I reviewed the patient's medical records. - Lab Data Lab results reviewed: Yes I reviewed the patient's lab results. Lab results narrative: Lab Results 01/06/19 01/06/19 01/06/19 Range/Units 07:33 07:33 07:33 WBC 6.3 (4.3-11.1) K/mcL RBC 5.22 (4.19-5.50) M/mcL Hgb 15.7 (12.9-16.9) g/dL Hct 46.2 (37.5-50.1) % MCV 88.5 (83.0-100.0) fL MCH 30.1 (28.0-33.3) pg MCHC 34.0 (31.6-35.5) g/dL RDW 13.6 (11.5-14.5) % Plt Count 204 (140-400) K/mcL MPV 9.9 (9.4-12.4) fL Immature Gran % 0.3 (0-4) % Seg Neutrophils % 63.6 % Lymphocytes % 26.2 % Monocytes % 8.6 % Eosinophils % 0.8 % Basophils % 0.5 % Neutrophils # 4.0 (1.6-8.9) K/mcL Lymphocytes # 1.7 (0.6-4.6) K/mcL Monocytes # 0.5 (0.0-1.3) K/mcL Eosinophils # 0.1 (0.0-0.6) K/mcL Basophils # 0.0 (0.0-0.2) K/mcL PT 11.9 (9.4-12.1) Seconds INR 1.1 APTT 30.7 (26.0-36.0) Seconds Sodium 139 (136-145) mEq/L Potassium 3.7 (3.5-5.1) mEq/L Chloride 104 (98-107) mEq/L Carbon Dioxide 28 (23-29) mEq/L BUN 17 (6-20) mg/dL Creatinine 0.83 (0.70-1.30) mg/dL Est GFR ( Amer) > 60 (> 60) Est GFR (Non-Af Amer) > 60 (> 60) BUN/Creatinine Ratio 20 (6-26) Glucose 135 H (70-105) mg/dL Calculated Osmolality 292 (280-300) Calcium 9.2 (8.6-10.3) mg/dL Troponin I < 0.03 (< 0.04) ng/mL Urine Color (Yellow) Urine Clarity (Clear) Urine pH (5.0-8.0) pH Units Ur Specific [place] (1.010-1.025) Urine Protein (Neg-Trace) mg/dL Urine Glucose (UA) (Normal) mg/dL Urine Ketones (Negative) mg/dL Urine Blood (Negative) Urine Nitrite (Negative) Urine Bilirubin (Negative) Urine Urobilinogen (Normal) mg/dL Ur Leukocyte Esterase (Negative) Ur Culture Indicated? (NO) 01/06/19 Range/Units 07:40 WBC (4.3-11.1) K/mcL RBC (4.19-5.50) M/mcL Hgb (12.9-16.9) g/dL Hct (37.5-50.1) % MCV (83.0-100.0) fL MCH (28.0-33.3) pg MCHC (31.6-35.5) g/dL RDW (11.5-14.5) % Plt Count (140-400) K/mcL MPV (9.4-12.4) fL Immature Gran % (0-4) % Seg Neutrophils % % Lymphocytes % % Monocytes % % Eosinophils % % Basophils % % Neutrophils # (1.6-8.9) K/mcL Lymphocytes # (0.6-4.6) K/mcL Monocytes # (0.0-1.3) K/mcL Eosinophils # (0.0-0.6) K/mcL Basophils # (0.0-0.2) K/mcL PT (9.4-12.1) Seconds INR APTT (26.0-36.0) Seconds Sodium (136-145) mEq/L Potassium (3.5-5.1) mEq/L Chloride (98-107) mEq/L Carbon Dioxide (23-29) mEq/L BUN (6-20) mg/dL Creatinine (0.70-1.30) mg/dL Est GFR ( Amer) (> 60) Est GFR (Non-Af Amer) (> 60) BUN/Creatinine Ratio (6-26) Glucose (70-105) mg/dL Calculated Osmolality (280-300) Calcium (8.6-10.3) mg/dL Troponin I (< 0.04) ng/mL Urine Color Yellow (Yellow) Urine Clarity Clear (Clear) Urine pH 7.5 (5.0-8.0) pH Units Ur Specific [place] 1.012 (1.010-1.025) Urine Protein Negative (Neg-Trace) mg/dL Urine Glucose (UA) Normal (Normal) mg/dL Urine Ketones Negative (Negative) mg/dL Urine Blood Negative (Negative) Urine Nitrite Negative (Negative) Urine Bilirubin Negative (Negative) Urine Urobilinogen Normal (Normal) mg/dL Ur Leukocyte Esterase Negative (Negative) Ur Culture Indicated? NO (NO) Result diagrams: 01/06/19 07:33 01/06/19 07:33 Lab Results 01/06/19 01/06/19 01/06/19 Range/Units 07:33 07:33 07:33 WBC 6.3 (4.3-11.1) K/mcL RBC 5.22 (4.19-5.50) M/mcL Hgb 15.7 (12.9-16.9) g/dL Hct 46.2 (37.5-50.1) % MCV 88.5 (83.0-100.0) fL MCH 30.1 (28.0-33.3) pg MCHC 34.0 (31.6-35.5) g/dL RDW 13.6 (11.5-14.5) % Plt Count 204 (140-400) K/mcL MPV 9.9 (9.4-12.4) fL Immature Gran % 0.3 (0-4) % Seg Neutrophils % 63.6 % Lymphocytes % 26.2 % Monocytes % 8.6 % Eosinophils % 0.8 % Basophils % 0.5 % Neutrophils # 4.0 (1.6-8.9) K/mcL Lymphocytes # 1.7 (0.6-4.6) K/mcL Monocytes # 0.5 (0.0-1.3) K/mcL Eosinophils # 0.1 (0.0-0.6) K/mcL Basophils # 0.0 (0.0-0.2) K/mcL PT 11.9 (9.4-12.1) Seconds INR 1.1 APTT 30.7 (26.0-36.0) Seconds Sodium 139 (136-145) mEq/L Potassium 3.7 (3.5-5.1) mEq/L Chloride 104 (98-107) mEq/L Carbon Dioxide 28 (23-29) mEq/L BUN 17 (6-20) mg/dL Creatinine 0.83 (0.70-1.30) mg/dL Est GFR ( Amer) > 60 (> 60) Est GFR (Non-Af Amer) > 60 (> 60) BUN/Creatinine Ratio 20 (6-26) Glucose 135 H (70-105) mg/dL Calculated Osmolality 292 (280-300) Calcium 9.2 (8.6-10.3) mg/dL Troponin I < 0.03 (< 0.04) ng/mL Urine Color (Yellow) Urine Clarity (Clear) Urine pH (5.0-8.0) pH Units Ur Specific [place] (1.010-1.025) Urine Protein (Neg-Trace) mg/dL Urine Glucose (UA) (Normal) mg/dL Urine Ketones (Negative) mg/dL Urine Blood (Negative) Urine Nitrite (Negative) Urine Bilirubin (Negative) Urine Urobilinogen (Normal) mg/dL Ur Leukocyte Esterase (Negative) Ur Culture Indicated? (NO) 01/06/19 Range/Units 07:40 WBC (4.3-11.1) K/mcL RBC (4.19-5.50) M/mcL Hgb (12.9-16.9) g/dL Hct (37.5-50.1) % MCV (83.0-100.0) fL MCH (28.0-33.3) pg MCHC (31.6-35.5) g/dL RDW (11.5-14.5) % Plt Count (140-400) K/mcL MPV (9.4-12.4) fL Immature Gran % (0-4) % Seg Neutrophils % % Lymphocytes % % Monocytes % % Eosinophils % % Basophils % % Neutrophils # (1.6-8.9) K/mcL Lymphocytes # (0.6-4.6) K/mcL Monocytes # (0.0-1.3) K/mcL Eosinophils # (0.0-0.6) K/mcL Basophils # (0.0-0.2) K/mcL PT (9.4-12.1) Seconds INR APTT (26.0-36.0) Seconds Sodium (136-145) mEq/L Potassium (3.5-5.1) mEq/L Chloride (98-107) mEq/L Carbon Dioxide (23-29) mEq/L BUN (6-20) mg/dL Creatinine (0.70-1.30) mg/dL Est GFR ( Amer) (> 60) Est GFR (Non-Af Amer) (> 60) BUN/Creatinine Ratio (6-26) Glucose (70-105) mg/dL Calculated Osmolality (280-300) Calcium (8.6-10.3) mg/dL Troponin I (< 0.04) ng/mL Urine Color Yellow (Yellow) Urine Clarity Clear (Clear) Urine pH 7.5 (5.0-8.0) pH Units Ur Specific [place] 1.012 (1.010-1.025) Urine Protein Negative (Neg-Trace) mg/dL Urine Glucose (UA) Normal (Normal) mg/dL Urine Ketones Negative (Negative) mg/dL Urine Blood Negative (Negative) Urine Nitrite Negative (Negative) Urine Bilirubin Negative (Negative) Urine Urobilinogen Normal (Normal) mg/dL Ur Leukocyte Esterase Negative (Negative) Ur Culture Indicated? NO (NO) - Radiology Data Radiology results reviewed: Yes I reviewed the patient's radiology results. Abdomen/Pelvis CT 01/06/19 07:11 IMPRESSION: 1. No acute findings within the chest. 2. 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 3. No acute findings within the abdomen or pelvis. 4. Diverticulosis. D/ / 01/06/2019 09:30:06 Jimmy Dave MD / Maura Jackson Interpreting Provider: Jimmy Dave MD Chest CTA 01/06/19 07:11 IMPRESSION: 1. No acute findings within the chest. 2. 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 3. No acute findings within the abdomen or pelvis. 4. Diverticulosis. D/ / 01/06/2019 09:30:06 Jimmy Dave MD / Maura Jackson Interpreting Provider: Jimmy Dave MD - EKG Data EKG #1 EKG attestation: Yes I reviewed and interpreted this EKG. EKG results narrative: EKG shows a sinus rhythm at a rate of 79 bpm. RI interval 149, QRS duration 89, QT/QTc interval 379/435. No ectopy noted. No ST elevation.
[2019-01-06 07:42] LABS: Basophils % 0.5 %; Eosinophils # 0.1 K/mcL (0.0-0.6); Eosinophils % 0.8 %; Hematocrit 46.2 % (37.5-50.1); Hemoglobin 15.7 g/dL (12.9-16.9); Immature Granulocytes % 0.3 % (0-4); Lymphocytes # 1.7 K/mcL (0.6-4.6); Lymphocytes % 26.2 %; Mean Corpuscular Hemoglobin 30.1 pg (28.0-33.3); Mean Corpuscular Volume 88.5 fL (83.0-100.0); Mean Platelet Volume 9.9 fL (9.4-12.4); Monocytes # 0.5 K/mcL (0.0-1.3); Monocytes % 8.6 %; Platelet Count 204 K/mcL (140-400); Red Blood Count 5.22 M/mcL (4.19-5.50); Red Cell Distribution Width 13.6 % (11.5-14.5); Segmented Neutrophils % 63.6 %
[2019-01-06] MEDS ORDERED: Nitroglycerin 0.4 MG TAB.SUBL SL PRN (07:48)
[2019-01-06 07:50] LABS: INR 1.1; Prothrombin Time 11.9 Seconds (9.4-12.1)
[2019-01-06 07:51] LABS: Bilirubin,Urine Negative (Negative); Blood,Urine Negative (Negative); Clarity,Urine Clear (Clear); Color,Urine Yellow (Yellow); Glucose,Urine (UA) Normal (Normal); Ketones,Urine Negative (Negative); Leukocyte Esterase,Urine Negative (Negative); Nitrite,Urine Negative (Negative); PH,Urine 7.5 pH Units (5.0-8.0); Protein,Urine Negative (Neg-Trace); Specific Gravity,Urine 1.012 (1.010-1.025); Urobilinogen,Urine Normal (Normal)
[2019-01-06 07:53] LABS: Activated Partial Thrombo Time 30.7 Seconds (26.0-36.0)
[2019-01-06 08:04] LABS: BUN/Creatinine Ratio 20 (6-26); Blood Urea Nitrogen 17 mg/dL (6-20); Calcium 9.2 mg/dL (8.6-10.3); Carbon Dioxide 28 mEq/L (23-29); Chloride 104 mEq/L (98-107); Glucose 135 mg/dL (70-105); Osmolality,Calculated 292 (280-300); Potassium 3.7 mEq/L (3.5-5.1); Sodium 139 mEq/L (136-145); Troponin I < 0.03 ng/mL (< 0.04); eGFR For Non-African Americans > 60 (> 60)
--- NOTE | 2019-01-06 10:32 | Emergency Department Note ---
Disposition Clinical Impression: Chest pain, rule out acute myocardial infarction Disposition: Admitted As Inpatient Condition: Good Referrals: Dirk Campos Jr, MD [Primary Care Provider] - Forms: ED Satisfaction Letter General Adult HPI - General Chief complaint: ED Chest Pain Stated complaint: "groin and CP" Time Seen by Provider: 01/06/19 06:41 Source: patient Mode of arrival: ambulatory Limitations: no limitations Nursing Notes Reviewed: Yes Vital Signs Reviewed: Yes - History of Present Illness HPI Narrative: Attestation note: Patient was seen with the emergency medicine resident/nurse practitioner/physician dental chairside assistant/transitional resident/medical student: NORMA TORRES I have personally performed a face to face evaluation on this patient. I have reviewed and agree with history and physical examination patient management and disposition. Briefly the salient points of the case are as follows: 53-year-old male history of aortic aneurysmal repair has risk factors smoker presents with chest pain and groin pain. Physical examination was a nontender abdomen afebrile stable vital signs normal EKG troponin negative patient had a chest CT to evaluate the aorta which was no acute process abdominopelvic CT showed an inguinal hernia but not incarcerated. Patient's symptoms have been controlled arrangements are being made for admission for chest pain ACS. Provided 30 minutes critical care service of this patient. Admission pending Location: chest, other (left groin) Pain Scale: 4 Quality: aching Improves with: nothing Worsens with: nothing Associated symptoms: Reports: cough (nonproductive). Denies: diaphoresis, fever/chills, nausea/vomiting - Related Data Home Medications Medication Instructions Recorded Confirmed Aspirin Enteric Coated [Aspirin EC] 81 mg PO DAILY 06/22/17 10/28/17 Metoprolol Succinate 100 mg PO DAILY 06/22/17 10/28/17 Multivitamin [Multi-Day Vitamins] 1 each PO DAILY 06/22/17 10/28/17 Triamterene/HCTZ 37.5/25mg 1 each PO DAILY 06/22/17 10/28/17 [Dyazide] Lisinopril [Zestril] 40 mg PO BID 10/28/17 10/28/17 amLODIPine [Norvasc] 5 mg PO DAILY 10/28/17 10/28/17 Previous Rx's Medication Instructions Recorded Clindamycin [Cleocin] 150 mg PO Q6HR #7 capsule 10/28/17 Ibuprofen [Motrin] 600 mg PO Q8HR #20 tab 10/28/17 OxyCODONE Immed Rel [Roxicodone 5 5 mg PO Q4HR PRN #14 tablet 10/28/17 MG] Allergies Allergy/AdvReac Type Severity Reaction Status Date / Time acetaminophen [From Tylenol] Allergy Hives Verified 10/28/17 08:12 Penicillins [PCN] Allergy Rash Verified 10/28/17 08:12 Constitutional: Denies: fever, chills, weakness, weight change Eyes: Denies: eye pain, eye discharge, vision change ENT ED: Denies: ear pain, throat pain, dental pain, hearing loss, epistaxis, congestion, dysphagia Cardiovascular: Reports: as per HPI, chest pain. Denies: palpitations, dyspnea on exertion, edema, syncope Respiratory: Reports: as per HPI, cough. Denies: dyspnea, wheezes, hemoptysis, stridor, sputum production Gastrointestinal: Reports: as per HPI, other (Left-sided groin pain). Denies: abdominal pain, nausea, vomiting, diarrhea, constipation, hematemesis, melena, hematochezia Genitourinary: Denies: urgency, dysuria, frequency, hematuria Musculoskeletal: Denies: back pain, neck pain, arthralgia, myalgia Integumentary: Denies: rash, abrasion, lesions Neurological: Denies: headache, weakness, numbness, paresthesias, confusion, abnormal gait, vertigo Psychiatric: Denies: anxiety, depression, suicidal thoughts, homicidal thoughts, auditory hallucinations, visual hallucinations Endocrine: Denies: fatigue Hematological/Lymphatic: Denies: easy bleeding, easy bruising Allergic/Immunologic: Denies: facial swelling, urticaria Past Medical History - Past Medical History Medical history: Reports: hypertension, other Psychiatric history: Reports: no psych history - Social History Smoking Status: Never smoker Smokeless Tobacco Status: No Alcohol use: Reports: occasionally Drug use: Reports: none Physical Exam - General Limitations: no limitations General appearance: alert, in no apparent distress Course Vital Signs Temperature 98.2 F 01/06/19 06:45 Pulse Rate 78 01/06/19 06:45 Respiratory Rate 18 01/06/19 06:45 Blood Pressure 181/92 01/06/19 06:45 O2 Sat by Pulse Oximetry 97 01/06/19 06:45 Temperature 98.2 F 01/06/19 06:45 Pulse Rate 78 01/06/19 06:45 Respiratory Rate 18 01/06/19 06:45 Blood Pressure 181/92 01/06/19 06:45 O2 Sat by Pulse Oximetry 97 01/06/19 06:45 Oxygen Delivery Oxygen Delivery Room Air Medical Decision Making - Lab Data Result diagrams: 01/06/19 07:33 01/06/19 07:33 Lab Results 01/06/19 01/06/19 01/06/19 Range/Units 07:33 07:33 07:33 WBC 6.3 (4.3-11.1) K/mcL RBC 5.22 (4.19-5.50) M/mcL Hgb 15.7 (12.9-16.9) g/dL Hct 46.2 (37.5-50.1) % MCV 88.5 (83.0-100.0) fL MCH 30.1 (28.0-33.3) pg MCHC 34.0 (31.6-35.5) g/dL RDW 13.6 (11.5-14.5) % Plt Count 204 (140-400) K/mcL MPV 9.9 (9.4-12.4) fL Immature Gran % 0.3 (0-4) % Seg Neutrophils % 63.6 % Lymphocytes % 26.2 % Monocytes % 8.6 % Eosinophils % 0.8 % Basophils % 0.5 % Neutrophils # 4.0 (1.6-8.9) K/mcL Lymphocytes # 1.7 (0.6-4.6) K/mcL Monocytes # 0.5 (0.0-1.3) K/mcL Eosinophils # 0.1 (0.0-0.6) K/mcL Basophils # 0.0 (0.0-0.2) K/mcL PT 11.9 (9.4-12.1) Seconds INR 1.1 APTT 30.7 (26.0-36.0) Seconds Sodium 139 (136-145) mEq/L Potassium 3.7 (3.5-5.1) mEq/L Chloride 104 (98-107) mEq/L Carbon Dioxide 28 (23-29) mEq/L BUN 17 (6-20) mg/dL Creatinine 0.83 (0.70-1.30) mg/dL Est GFR ( Amer) > 60 (> 60) Est GFR (Non-Af Amer) > 60 (> 60) BUN/Creatinine Ratio 20 (6-26) Glucose 135 H (70-105) mg/dL Calculated Osmolality 292 (280-300) Calcium 9.2 (8.6-10.3) mg/dL Troponin I < 0.03 (< 0.04) ng/mL Urine Color (Yellow) Urine Clarity (Clear) Urine pH (5.0-8.0) pH Units Ur Specific [place] (1.010-1.025) Urine Protein (Neg-Trace) mg/dL Urine Glucose (UA) (Normal) mg/dL Urine Ketones (Negative) mg/dL Urine Blood (Negative) Urine Nitrite (Negative) Urine Bilirubin (Negative) Urine Urobilinogen (Normal) mg/dL Ur Leukocyte Esterase (Negative) Ur Culture Indicated? (NO) 01/06/19 Range/Units 07:40 WBC (4.3-11.1) K/mcL RBC (4.19-5.50) M/mcL Hgb (12.9-16.9) g/dL Hct (37.5-50.1) % MCV (83.0-100.0) fL MCH (28.0-33.3) pg MCHC (31.6-35.5) g/dL RDW (11.5-14.5) % Plt Count (140-400) K/mcL MPV (9.4-12.4) fL Immature Gran % (0-4) % Seg Neutrophils % % Lymphocytes % % Monocytes % % Eosinophils % % Basophils % % Neutrophils # (1.6-8.9) K/mcL Lymphocytes # (0.6-4.6) K/mcL Monocytes # (0.0-1.3) K/mcL Eosinophils # (0.0-0.6) K/mcL Basophils # (0.0-0.2) K/mcL PT (9.4-12.1) Seconds INR APTT (26.0-36.0) Seconds Sodium (136-145) mEq/L Potassium (3.5-5.1) mEq/L Chloride (98-107) mEq/L Carbon Dioxide (23-29) mEq/L BUN (6-20) mg/dL Creatinine (0.70-1.30) mg/dL Est GFR ( Amer) (> 60) Est GFR (Non-Af Amer) (> 60) BUN/Creatinine Ratio (6-26) Glucose (70-105) mg/dL Calculated Osmolality (280-300) Calcium (8.6-10.3) mg/dL Troponin I (< 0.04) ng/mL Urine Color Yellow (Yellow) Urine Clarity Clear (Clear) Urine pH 7.5 (5.0-8.0) pH Units Ur Specific [place] 1.012 (1.010-1.025) Urine Protein Negative (Neg-Trace) mg/dL Urine Glucose (UA) Normal (Normal) mg/dL Urine Ketones Negative (Negative) mg/dL Urine Blood Negative (Negative) Urine Nitrite Negative (Negative) Urine Bilirubin Negative (Negative) Urine Urobilinogen Normal (Normal) mg/dL Ur Leukocyte Esterase Negative (Negative) Ur Culture Indicated? NO (NO)
[2019-01-06] MEDS ORDERED: Naloxone 0.4 MG/ML INJ IVP PRN (11:53)
[2019-01-06] MEDS ORDERED: ALPRAZolam 1 MG TABLET PO PRN (12:04)
[2019-01-06] MEDS: Lisinopril 20 MG TABLET PO SCH (12:27)
[2019-01-06] MEDS: Ibuprofen 600 MG TABLET PO SCH ×2 (16:15→20:05)
--- NOTE | 2019-01-06 23:18 | Internal Med History&Physical ---
Date of Encounter: 01/06/19 Time of Encounter: 19:00 Internal Medicine - H&P: HPI Chief complaint: Atypical chest pain Admitted From: Home Plans for Post Hospital Care: Home History of present illness: The patient is a 53-year-old male. He came to the emergency room complaining of anterior chest pain. The pain started about 2 weeks ago; he is fluctuating in intensitymild/moderate. It is located a little bit right to the sternum. Not radiating anywhere. Worse with coughing. The coughing has been for a couple we eks. Not associated with wheezing. His chest pain is not getting any worse with exertion. He has developed left groin pain in the last 2 weeks. Coughing makes it worse. It is mild/moderate in intensity. The patient has been under quite a bit of stress recently. He feels like the stress is making his pain worse. PAST MEDICAL HX: He has been treated for hypertension and low back pain. He was diagnosed with abdominal aortic aneurysm in the past. PAST FAMILY HX: See below PAST SOCIAL HX: He has never used tobacco. He drinks alcohol very occasionally. He denies illicit drug use. REVIEW OF SYSTEMS: All 14 organ systems were reviewed by me with the patient. Positive and pertinent negative findings are listed above. The rest of organ systems is negative. PHYSICAL EXAM: Skin: Free of rash and discoloration. Musculoskeletal: There is mild tenderness in the area of his chest pain. Eyes: Sclera is white. There is no discharge from eyes. ENMT: Oral/pharyngeal mucosa is normal in appearance. There is no discharge from nose or ears. Respiratory: Normal breath sounds with no crackles and wheezes bilaterally. CV: Heart is regular with no gallop or murmur. GI: Abdomen is flat and soft with no palpable mass or visceromegaly. There is mild tenderness in the area of left groin (no bulging is appreciated). : There is no tenderness in patient's flanks bilaterally. Neuro exam: He has good strength in upper and lower extremities. He has normal eye movements. Psychiatric: He has normal affect. His thought process is appropriate to the situation. ADDITIONAL DATA: The patient had normal nuclear medicine stress test and echocardiogram in June 2017. EKG shows normal sinus rhythm. Troponin was checked on 2 occasions it is normal. CBC is normal. BMP is normal. UA is normal. CT of abdomen and pelvis shows stable AAA. A/P: Atypical chest pain. Likely musculoskeletal, potentiated by anxiety. I gave the patient reassurance. He will be taking scheduled ibuprofen. I will give him an couple doses of Xanax. We may send him home on low-dose of Paxil or s imilar medication. Hypertension. Under control. To continue Toprol-XL, lisinopril, amlodipine and Dyazide. Small left inguinal hernia. To be addressed later in outpatient settings. AAA. Stable. Chronic low back pain. To continue low-dose when necessary oxycodone. Past Med Surg Social Fam HX - Past Medical History Medical history: aortic aneurysm, hypertension Additional medical history: AAA Psychiatric history: no psych history - Past Surgical History Additional surgical history: trigger finger release right, colonoscopy w/ polypectomy, anal dilation-03/2013, carpal tunnel bilateral-2012 - Social History Smoking Status: Never smoker Smokeless Tobacco Status: No Alcohol use: none, occasionally Drug use: none - Family History Father Living Status: Cause of : cancer Hx Family Cancer: Yes (colon with metastasis) Mother Age: 81 Living Status: Still Living Internal Medicine - H&P: Meds Aspirin Enteric Coated [Aspirin EC] 81 mg PO DAILY 06/22/17 [History] Metoprolol Succinate 100 mg PO DAILY 06/22/17 [History] Multivitamin [Multi-Day Vitamins] 1 each PO DAILY 06/22/17 [History] Triamterene/HCTZ 37.5/25mg [Dyazide] 1 each PO DAILY 06/22/17 [History] Ibuprofen [Motrin] 600 mg PO Q8HR #20 tab 10/28/17 [Rx] Lisinopril [Zestril] 40 mg PO BID 10/28/17 [History] amLODIPine [Norvasc] 5 mg PO DAILY 10/28/17 [History] Allergy/AdvReac Type Severity Reaction Status Date / Time acetaminophen [From Tylenol] Allergy Hives Verified 10/28/17 08:12 Penicillins [PCN] Allergy Rash Verified 10/28/17 08:12 - Constitutional Vitals: Temp Pulse Resp BP Pulse Ox 98.2 F 77 18 164/79 95 01/06/19 19:07 01/06/19 19:07 01/06/19 19:07 01/06/19 19:07 01/06/19 19:07 General appearance: Present: A&O X 3, no acute distress, answers questions appropriately Exam: xx Internal Med - H&P Results - Labs CBC & Chem 7: 01/06/19 07:33 01/06/19 07:33 Labs: Short CBC 01/06/19 Range/Units 07:33 WBC 6.3 (4.3-11.1) K/mcL Hgb 15.7 (12.9-16.9) g/dL Hct 46.2 (37.5-50.1) % Plt Count 204 (140-400) K/mcL Neutrophils # 4.0 (1.6-8.9) K/mcL BMP 01/06/19 07:33 Sodium 139 Potassium 3.7 Chloride 104 Carbon Dioxide 28 BUN 17 Creatinine 0.83 Glucose 135 H Calcium 9.2 Cardiac Enzymes 01/06/19 01/06/19 Range/Units 07:33 13:50 Troponin I < 0.03 < 0.03 (< 0.04) ng/mL Urine 01/06/19 Range/Units 07:40 Urine Color Yellow (Yellow) Urine Clarity Clear (Clear) Urine pH 7.5 (5.0-8.0) pH Units Ur Specific [place] 1.012 (1.010-1.025) Urine Protein Negative (Neg-Trace) mg/dL Urine Glucose (UA) Normal (Normal) mg/dL - Impressions ITS Impressions Abdomen/Pelvis CT 01/06/19 07:11 IMPRESSION: 1. No acute findings within the chest. 2. 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 3. No acute findings within the abdomen or pelvis. 4. Diverticulosis. D/ / 01/06/2019 09:30:06 Jimmy Dave MD / Maura Jackson Interpreting Provider: Jimmy Dave MD Chest CTA 01/06/19 07:11 IMPRESSION: 1. No acute findings within the chest. 2. 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 3. No acute findings within the abdomen or pelvis. 4. Diverticulosis. D/ / 01/06/2019 09:30:06 Jimmy Dave MD / Maura Jackson Interpreting Provider: Jimmy Dave MD - Assessment and Plan (1) Atypical chest pain Current Visit: Yes Status: Acute (2) Hypertension Current Visit: Yes Status: Acute Qualifiers: Hypertension type: essential hypertension Qualified Code(s): I10 - Essential (primary) hypertension (3) Inguinal hernia, left Current Visit: Yes Status: Acute (4) AAA (abdominal aortic aneurysm) Current Visit: Yes Status: Chronic Qualifiers: Presence of rupture: without rupture Qualified Code(s): I71.4 - Abdominal aortic aneurysm, without rupture - Time Spent With Patient Total time spent is greater than 50% in coordination of care (as documented) at patient's floor/unit and/or counseling patient: 25 - 35 minutes
[2019-01-07] MEDS: *HR* OxyCODONE Immed Rel 5 MG TABLET PO PRN ×2 (00:06→21:14)
[2019-01-07] MEDS ORDERED: Regadenoson 0.4 MG/5 ML SYRINGE IVP ONE (10:35)
--- NOTE | 2019-01-07 13:30 | Orthopedic Consult Note ---
Date of Encounter: 01/07/19 Time of Encounter: 17:00 Assessment and Plan (1) Left groin pain Current Visit: Yes Status: Acute History of Present Illness Chief complaint: groin pain HPI: Mr. Baca is a 53 year old male presents to [facility] for chest pain intermittent and increasing in frequency over the past 6 months as well as ongoing left groin/hip pain. He states the groin pain started about 2 weeks ago and has been ongoing with weightbearing only. He states that the pain is a deep feeling and points posterior to the left aspect of the pubic symphysis and ischial tuberosity. 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 He states it is possible he could have injured his groin with heavy lifting. He denies any history of pain of this nature in the past. Denies history of fall, trauma, fracture or low back injury. Denies any pain with urination, defecation, history of hernia, recent illness, nausea, or vomiting. On exam patient is resting asleep in chair, easily awoken. Patient alert and oriented x 3 No gross deformity noted to left hip and lower extremity No tenderness to palpation of the left lower extremity Significant tenderness to palpation of the left SI joint. No tenderness to the right SI joint. No pain to palpation of the abdomen. ROM left hip near full, limited only of note with internal rotation. External rotation per patient admits to relief of discomfort. Patient slow to rise, however able to ambulate with regular gait once upright. Weight-bearing patient admits to left groin pain in same area as noted above. CT/CT abd pelvis w iv no oral IMPRESSION: 1. No acute findings within the chest. 2. 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 3. No acute findings within the abdomen or pelvis. 4. Diverticulosis. D/ / 01/06/2019 09:30:06 Jimmy Dave MD / Maura Jackson Noted on report: There is a small left inguinal hernia containing fat. MR/MR hip LT wo con IMPRESSION: 1. Tear of the left anterior superior labrum. 2. Heterogeneous appearance of the bone marrow which is a nonspecific finding and can be seen in obese patient, smokers, and in the setting of anemia amongst other etiologies. Clinical and laboratory correlation suggested. 3. No acute osseous abnormality identified. 4. Minimal amount of nonspecific free fluid within the pelvis. D/ / Stu Hernandez MD / Stu Hernandez MD Noted on report: Mild degenerative changes of the bilateral hips. Assessment: left groin pain Plan: Physical exam findings appear to point to deep hip pathology however with patient's pain with SI joint palpation may be multifactorial causation. Labral tear may be a source of discomfort which would be treated with anti- inflammatories as first line however given patient's chest pain will discuss with hospitalist appropriateness. In addition would recommend outpatient follow up with Sports Medicine at [facility] for possible hip injection for therapeutic and diagnostic relief. Outpatient follow up arranged. Thank you for this consultation. Past Med Surg Social Fam HX - Past Medical History Medical history: aortic aneurysm, hypertension Additional medical history: AAA Psychiatric history: no psych history - Past Surgical History Additional surgical history: trigger finger release right, colonoscopy w/ polypectomy, anal dilation-03/2013, carpal tunnel bilateral-2012 - Social History Smoking Status: Never smoker Smokeless Tobacco Status: No Alcohol use: none, occasionally Drug use: none - Family History Father Living Status: Cause of : cancer Hx Family Cancer: Yes (colon with metastasis) Mother Age: 81 Living Status: Still Living Medications and Allergies Triamterene/HCTZ 37.5/25mg [Dyazide] 1 tab PO DAILY 06/22/17 [History] Lisinopril [Zestril] 40 mg PO BID 10/28/17 [History] amLODIPine [Norvasc] 5 mg PO DAILY 10/28/17 [History] Aspirin [Lo-Dose Aspirin EC] 81 mg PO DAILY 01/07/19 [History] Ibuprofen [Ibu-200] 400 mg PO DAILY PRN 01/07/19 [History] Metoprolol Succinate [Toprol Xl] 100 mg PO DAILY 01/07/19 [History] Multivitamin [Daily Multiple Vitamin] 1 tab PO DAILY 01/07/19 [History] Allergy/AdvReac Type Severity Reaction Status Date / Time acetaminophen [From Tylenol] Allergy Hives Verified 01/07/19 10:50 Penicillins [PCN] Allergy Hives Verified 01/07/19 10:50 All Systems Reviewed: The remainder of the systems were reviewed and are negative Physical Exam - Constitutional Vitals: Temp Pulse Resp BP Pulse Ox 97.9 F 74 16 145/87 95 01/07/19 10:59 01/07/19 10:59 01/07/19 10:59 01/07/19 10:59 01/07/19 10:59 Results - Labs Result Diagrams: 01/06/19 07:33 01/06/19 07:33 Labs: Abnormal lab results Glucose 135 mg/dL (70-105) H 01/06/19 07:33 All other labs normal. Consult Discharge Plan - Plan Instructions: Chest Pain (DC) Additional Instructions: Follow-up appointments: If there is not an appointment listed below, please call your physician and schedule a follow-up appointment. If you have congestive heart failure and your symptoms return, make an appointment with your physician. Medication List: Carry an up to date list of medications you are taking at all time. We have given you an updated medication list including any new medications that you have been prescribed. Please provide that list to your primary provider Symptoms: If your condition changes or you experience any of the following symptoms, notify your physician immediately: Unusual or worsening pain, fever, persistent nausea and vomiting, bleeding, increase in swelling (especially in your legs), sudden weight gain, extreme dizziness, chest pain, increased drainage or redness from a wound or incision. Go to the emergency department if you experience a problem with breathing. Weights: If you have a history of swelling or shortness of breath, weigh yourself daily and notify your physician if you have a weight gain of two or more pounds in one day or 5 or more pounds in a week. If you experience any of the warning signs for stroke: Sudden numbness or weakness of the face, arm or leg; especially on one side of the body, sudden confusion, trouble speaking or understanding, sudden trouble seeing in one or both eyes, sudden trouble walking, dizziness, loss of balance or coordination, sudden sever headache with no cause; Call 911 or go to the emergency room. Stroke is a medical emergency. Some risk factors for stroke: Age, cigarette smoking, diabetes, excessive alcohol consumption, family history, high blood pressure, overweight, physical inactivity, prior stroke, heart a ttack, diagnosis of carotid artery stenosis or other artery disease. If you smoke, STOP: Smoking or tobacco use significantly increases your risk of heart and lung disease. Your chance of disease greatly increases if you continue to smoke. For more information, call the [place] tobacco quit line for smoking cessation 8-889-IFWO-NOW ( ) Referrals: Dirk Campos Jr, MD [Primary Care Provider] - 01/14/19 9:15 am ()
[2019-01-07] MEDS: Ibuprofen 600 MG TABLET PO SCH ×2 (14:30→14:40)
[2019-01-07] MEDS: Lisinopril 20 MG TABLET PO SCH (14:40)
[2019-01-07] MEDS: amLODIPine 5 MG TABLET PO SCH (14:40)
[2019-01-07] MEDS ORDERED: *HR* OxyCODONE Immed Rel 5 MG TABLET PO PRN (14:48)
--- NOTE | 2019-01-07 14:51 | Internal Med Progress Note ---
Hospitalist Progress Note - Encounter Date of Encounter: 01/07/19 Time of Encounter: 10:30 - Subjective Interval History: Mr. Baca is a 53 y/o M with known PMH of HTN, HLD and morbid obesity pt presented to ER with intermittent CP located sub sternally, non radiating 6/10 in severity. From last 2 days he has been having continuous chest pain. He also c/o severe left groin pain. unable to move / flex his left hip from last 2 weeks, which is progressively worsening. pt stated his groin pain is main problem for him now. - Exam Vitals: Temp Pulse Resp BP Pulse Ox 97.9 F 74 16 145/87 95 01/07/19 10:59 01/07/19 10:59 01/07/19 10:59 01/07/19 10:59 01/07/19 10:59 Exam: Gen: Alert, awake, Oriented to time,place and person Chest: Diminished breath sounds B/L, No wheezing, No crackles, No rales Heart: S1S2+ RRR No murmurs Abd: Soft, NT, BS +, No organomegaly Ext: No edema, pulses are palpable, No calf tenderness Limited ROM in Left hip. Moderate tenderness in left groin. Limited flexion and abduction due to pain Neuro : Benign findings Skin: No rash. - Assessment and Plan (1) Atypical chest pain Current Visit: Yes Status: Acute Assessment and Plan: serial trop were negative no acute ischemic changes on EKG Since pt is high risk for ACS ordered nuclear stress test Does need 2 days stress (2) Left hip pain Current Visit: Yes Status: Acute Assessment and Plan: Concerning for Hip pathology for his Left intractable groin pain Consulted Ortho MRI of Left Hip ordered which showed - Tear of the left anterior superior labrum Cont narcotics PRN for pain cont symptomatic and supportive care Non weight baring and continuos bed rest until pt get evaluated by Ortho On Lovenox for DVT prophylaxis (3) Hypertension Current Visit: Yes Status: Acute Assessment and Plan: Stable BP resumed all home meds (4) AAA (abdominal aortic aneurysm) Current Visit: Yes Status: Chronic Assessment and Plan: stable need out pt f/u - Time Spent with Patient Total time spent is greater than 50% in coordination of care (as documented) at patient's floor/unit and/or counseling patient: Internal Medicine: Result - Labs CBC & Chem 7: 01/06/19 07:33 01/06/19 07:33 - ABG Interpretation ABG results: PT/INR, D-dimer PT 11.9 Seconds (9.4-12.1) 01/06/19 07:33 - Impressions Impressions Abdomen/Pelvis CT 01/06/19 07:11 IMPRESSION: 1. No acute findings within the chest. 2. 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 3. No acute findings within the abdomen or pelvis. 4. Diverticulosis. D/ / 01/06/2019 09:30:06 Jimmy Dave MD / Maura Jackson Interpreting Provider: Jimmy Dave MD Chest CTA 01/06/19 07:11 IMPRESSION: 1. No acute findings within the chest. 2. 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 3. No acute findings within the abdomen or pelvis. 4. Diverticulosis. D/ / 01/06/2019 09:30:06 Jimmy Dave MD / Maura Jackson Interpreting Provider: Jimmy Dave MD Hip MRI 01/07/19 10:16 IMPRESSION: 1. Tear of the left anterior superior labrum. 2. Heterogeneous appearance of the bone marrow which is a nonspecific finding and can be seen in obese patient, smokers, and in the setting of anemia amongst other etiologies. Clinical and laboratory correlation suggested. 3. No acute osseous abnormality identified. 4. Minimal amount of nonspecific free fluid within the pelvis. D/ / Stu Hernandez MD / Stu Hernandez MD Interpreting Provider: Stu Hernandez MD Consult Discharge Plan - Plan Instructions: Chest Pain (DC) Additional Instructions: Follow-up appointments: If there is not an appointment listed below, please call your physician and schedule a follow-up appointment. If you have congestive heart failure and your symptoms return, make an appointment with your physician. Medication List: Carry an up to date list of medications you are taking at all time. We have given you an updated medication list including any new medications that you have been prescribed. Please provide that list to your primary provider Symptoms: If your condition changes or you experience any of the following symptoms, notify your physician immediately: Unusual or worsening pain, fever, persistent nausea and vomiting, bleeding, increase in swelling (especially in your legs), sudden weight gain, extreme dizziness, chest pain, increased drainage or redness from a wound or incision. Go to the emergency department if you experience a problem with breathing. Weights: If you have a history of swelling or shortness of breath, weigh yourself daily and notify your physician if you have a weight gain of two or more pounds in one day or 5 or more pounds in a week. If you experience any of the warning signs for stroke: Sudden numbness or weakness of the face, arm or leg; especially on one side of the body, sudden confusion, trouble speaking or understanding, sudden trouble seeing in one or both eyes, sudden trouble walking, dizziness, loss of balance or coordination, sudden sever headache with no cause; Call 911 or go to the emergency room. Stroke is a medical emergency. Some risk factors for stroke: Age, cigarette smoking, diabetes, excessive alcohol consumption, family history, high blood pressure, overweight, physical inactivity, prior stroke, heart attack, diagnosis of carotid artery stenosis or other artery disease. If you smoke, STOP: Smoking or tobacco use significantly increases your risk of heart and lung disease. Your chance of disease greatly increases if you continue to smoke. For more information, call the [place] tobacco quit line for smoking cessation 866-OTUY-UKS ( ) Referrals: Dirk Campos Jr, MD [Primary Care Provider] - 01/14/19 9:15 am () (3) Hypertension Qualifiers: Hypertension type: essential hypertension Qualified Code(s): I10 - Essential (primary) hypertension (4) AAA (abdominal aortic aneurysm) Qualifiers: Presence of rupture: without rupture Qualified Code(s): I71.4 - Abdominal aortic aneurysm, without rupture
[2019-01-08] MEDS ORDERED: *HR* Enoxaparin 40 MG/0.4 ML SYRINGE SQ SCH (06:00)
[2019-01-08] MEDS ORDERED: Aspirin Enteric Coated 81 MG Tablet PO SCH (09:00)
[2019-01-08] MEDS: amLODIPine 5 MG TABLET PO SCH (11:27)
[2019-01-08] MEDS: Lisinopril 20 MG TABLET PO SCH (11:27)
[2019-01-08 11:52] VITALS: BP 127/55
--- NOTE | 2019-01-08 14:38 | Electrocardiograph Report ---
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
--- NOTE | 2019-01-08 14:45 | Discharge Summary ---
- NOTES TO OUTPATIENT PROVIDER Notes to Outpatient Provider: Presented with chest pain underwent 2 days cardiac stress test which was negative for any ischemia or infarct. Also experiencing left groin/hip pain for approximately 2 weeks-underwent MRI of left hip which did show a tear of left anterior superior labrum was seen by orthopedics- recommending anti-inflammatories follow up with sports medicine at a [facility] for possible hip injections. Also continued monitoring of AAA-which was stable measuring up to 4.0 cm Orders not resulted at time of discharge: Pending orders 01/07/19 10:12 NM colten perf SPECT multi [NM] Routine Date of Encounter: 01/08/19 Time of Encounter: 14:56 - Discharge Diagnosis (1) Hypertension Priority: Secondary Status: Acute Qualifiers: Hypertension type: essential hypertension Qualified Code(s): I10 - Essential (primary) hypertension (2) Atypical chest pain Priority: Primary Status: Acute (3) AAA (abdominal aortic aneurysm) Priority: Secondary Status: Chronic Qualifiers: Presence of rupture: without rupture Qualified Code(s): I71.4 - Abdominal aortic aneurysm, without rupture (4) Left hip pain Priority: Secondary Status: Acute Hospital course: Mr. Baca is a 53 year old male past medical history aortic aneurysm hypertension. Patient presented to [facility] the ED with complaints of anterior chest pain nonradiating Pain started about 2 weeks ago and has been fluctuating in intensity worse with exertion. He has also been experiencing left hip/groin pain for last 2 weeks pain is ongoing with weightbearing only. 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 Troponins were negative [address]-T wave abnormalities patient did undergo daily cardiac stress test which was negative for any ischemia or infarct he is not being sprinting and chest pain during this admission. Patient did undergo MRI of left hip which did reveal tear of the left anterior superior labrum patient was seen by orthopedics was recommending anti-inflammatories as first line and have patient follow-up as outpatient with sports medicine at a [facility] for possible hip injections. Appointment has been made for next week. Advised patient to rest and avoid heavy lifting or straining. Patient states he is unsure if he can take time off work without losing his job. Advised patient I would given a work excuse so that he can be off until he is evaluated by orthopedics next week. Advised patient to follow-up with primary care provider and to continue to have AAA monitor as outpatient. Currently patient is able to stand and ambulate however this very painful. Patient will be given prescription for Medrol Dosepak as well as ultram after [facility] report reviewed. Patient is hemodynamically stable at this time is ready for discharge. - Time Spent with Patient Total time spent providing and/or coordinating discharge services: - Discharge Medications Prescriptions: New Docusate Sodium [Colace] 100 mg PO DAILY #30 capsule Tramadol HCl [Ultram] 50 mg PO TID PRN 4 Days #12 tab PRN Reason: Pain Continue Triamterene/HCTZ 37.5/25mg [Dyazide] 1 tab PO DAILY amLODIPine [Norvasc] 5 mg PO DAILY Lisinopril [Zestril] 40 mg PO BID Aspirin [Lo-Dose Aspirin EC] 81 mg PO DAILY Ibuprofen [Ibu-200] 400 mg PO DAILY PRN PRN Reason: headache/pain Multivitamin [Daily Multiple Vitamin] 1 tab PO DAILY No Action Metoprolol Succinate [Toprol Xl] 100 mg PO DAILY Home Medications: Triamterene/HCTZ 37.5/25mg [Dyazide] 1 tab PO DAILY 06/22/17 [History] Lisinopril [Zestril] 40 mg PO BID 10/28/17 [History] amLODIPine [Norvasc] 5 mg PO DAILY 10/28/17 [History] Aspirin [Lo-Dose Aspirin EC] 81 mg PO DAILY 01/07/19 [History] Ibuprofen [Ibu-200] 400 mg PO DAILY PRN 01/07/19 [History] Metoprolol Succinate [Toprol Xl] 100 mg PO DAILY 01/07/19 [History] Multivitamin [Daily Multiple Vitamin] 1 tab PO DAILY 01/07/19 [History] Docusate Sodium [Colace] 100 mg PO DAILY #30 capsule 01/08/19 [Rx] Tramadol HCl [Ultram] 50 mg PO TID PRN 4 Days #12 tab 01/08/19 [Rx] Allergies/Adverse Reactions: Allergy/AdvReac Type Severity Reaction Status Date / Time acetaminophen [From Tylenol] Allergy Hives Verified 01/07/19 10:50 Penicillins [PCN] Allergy Hives Verified 01/07/19 10:50 Date of admission: 01/06/19 11:06 Primary care physician: Dirk Campos Jr, MD Consults: 01/07/19 10:12 Consult to Orthopedic Surgery [CONS] Routine Consulting Provider: [facility] Reason for Consult: Severe Left groin pain . Unable to do Left hip abduction and Flexion Time Notified: 10:13 Call Completed: Yes Discharging clinician: Kaley Gonzalez Anticipated date of discharge: 01/08/19 - Constitutional Vitals: Temp Pulse Resp BP Pulse Ox 97.9 F 85 16 127/55 97 01/08/19 11:51 01/08/19 11:51 01/08/19 11:51 01/08/19 11:51 01/08/19 11:51 General appearance: Present: A&O X 3, no acute distress, answers questions appropriately Exam: Gen: Alert, awake, Oriented to time,place and person Chest: Diminished breath sounds B/L, No wheezing, No crackles, No rales Heart: S1S2+ RRR No murmurs Abd: Soft, NT, BS +, No organomegaly Ext: No edema, pulses are palpable, No calf tenderness Limited ROM in Left hip. Moderate tenderness in left groin. Limited flexion and abduction due to pain Neuro : Benign findings Skin: No rash. - Patient Status Disposition: Home, Self-Care Condition: Good Functional capacity at discharge: independent ambulation Overall status at discharge: patient is back to baseline - Discharge Instructions Instructions: Chest Pain (DC) Follow Up With: Ananth Jackson MD [Partnered Physician] - 01/13/19 10:10 am Dirk Campos Jr, MD [Primary Care Provider] - 01/14/19 9:15 am () Additional Instructions: Follow-up appointments: If there is not an appointment listed below, please call your physician and schedule a follow-up appointment. If you have congestive heart failure and your symptoms return, make an appointment with your physician. Medication List: Carry an up to date list of medications you are taking at all time. We have given you an updated medication list including any new medications that you have been prescribed. Please provide that list to your primary provider Symptoms: If your condition changes or you experience any of the following symptoms, notify your physician immediately: Unusual or worsening pain, fever, persistent nausea and vomiting, bleeding, increase in swelling (especially in your legs), sudden weight gain, extreme dizziness, chest pain, increased drainage or redness from a wound or incision. Go to the emergency department if you experience a problem with breathing. Weights: If you have a history of swelling or shortness of breath, weigh yourself daily and notify your physician if you have a weight gain of two or more pounds in one day or 5 or more pounds in a week. If you experience any of the warning signs for stroke: Sudden numbness or weakness of the face, arm or leg; especially on one side of the body, sudden confusion, trouble speaking or understanding, sudden trouble seeing in one or both eyes, sudden trouble walking, dizziness, loss of balance or coordination, sudden sever headache with no cause; Call 911 or go to the emergency room. Stroke is a medical emergency. Some risk factors for stroke: Age, cigarette smoking, diabetes, excessive alcohol consumption, family history, high blood pressure, overweight, physical inactivity, prior stroke, heart attack, diagnosis of carotid artery stenosis or other artery disease. If you smoke, STOP: Smoking or tobacco use significantly increases your risk of heart and lung disease. Your chance of disease greatly increases if you continue to smoke. For more information, call the [place] tobacco quit line for smoking cessation 0-387-DWPO-NOW ( ) - Diet and Activity Activity: other (No lifting heavy objects) Diet: advance to your usual diet
== END 2019-01-08 16:49 | disposition home or self-care (01) ==
LOC: EMEROOARM 06:36 → 3BNU 06:36 → SUATTDRO 11:06 → 3BNU 11:40
PROVIDERS: ADMIT Internal Medicine; ATTEND Family Medicine